=== PATIENT | female | born 1965 | race Caucasian/White ===

== ENCOUNTER 2021-07-20 19:03 | Inpatient (IN) | payer MEDICARE, OTHER ==
[~2021-07-20] VITALS: Ht 170.2 cm; Wt 61.7 kg
[2021-07-20 22:40] LABS: HEMOGLOBIN 10.4 gm/dl (12.3-15.3); RED BLOOD COUNT 3.58 M/UL (4.00-5.10); WHITE BLOOD COUNT 3.6 K/UL (4.5-11.0)
[2021-07-20 23:32] LABS: BUN/CREATININE RATIO 37 (0-10)
--- NOTE | 2021-07-21 | NUR ---
PATIENT WAS TRANSPORTED TO CT SCAN FOR HEAD CT WITHOUT COMPLICATION. RESULT WAS CALLED BY READING RADIOLOGIST AND RELAYED TO DR STEELE.
--- NOTE | 2021-07-21 01:12 | NUR ---
PER REQUEST FROM DR STEELE. CAREGIVER WAS NOTIFIED. UPDATE GIVEN AND HEAD CT RESULTS EXPLAINED. ALL QUESTIONS AND CONCERNS ADDRESSED. PATIENT REMAINS FULL CODE.
[2021-07-21 03:23] LABS: HEMOGLOBIN 10.6 gm/dl (12.3-15.3); RED BLOOD COUNT 3.69 M/UL (4.00-5.10)
[2021-07-21 03:45] LABS: BUN/CREATININE RATIO 33 (0-10)
[2021-07-21 03:53] LABS: WHITE BLOOD COUNT 10.4 K/UL (4.5-11.0)
[2021-07-21] MEDS ORDERED: THORAZINE 25 MG25 MG PO (11:55)
[2021-07-21] MEDS ORDERED: SERTRALINE HCL100 MG PO (11:56)
[2021-07-21] MEDS ORDERED: CRESTOR20 MG PO (11:57)
[2021-07-21] MEDS ORDERED: OXCARBAZEPINE150 MG PO (11:58)
[2021-07-21] MEDS ORDERED: OMEPRAZOLE20 MG PO (11:58)
[2021-07-21] MEDS ORDERED: LACTULOSE10 GM/151 PO (12:14)
[2021-07-21] MEDS ORDERED: CLONAZEPAM1 MG PO (12:17)
[2021-07-21] MEDS ORDERED: CLONAZEPAM2 MG PO (12:17)
[2021-07-21] MEDS ORDERED: CHLORPROMAZINE200 MG PO (12:18)
[2021-07-21] MEDS ORDERED: CARAFATE 1 GM TA1 GM PO (12:18)
[2021-07-21] MEDS ORDERED: DOCUSATE SODIU100 MG PO (13:04)
[2021-07-21] MEDS ORDERED: LORATADINE10 MG PO (13:04)
[2021-07-21] MEDS ORDERED: MELATONIN10 MG PO (13:05)
[2021-07-21] MEDS ORDERED: MULTIVITAMIN1 EACH PO (13:06)
[2021-07-21] MEDS ORDERED: FERROUS SULFAT325 MG PO (13:06)
[2021-07-21] MEDS ORDERED: VITAMIN D21250 MCG PO (13:07)
[2021-07-21 14:36] LABS: BUN/CREATININE RATIO 26 (0-10)
[2021-07-21 18:50] LABS: BUN/CREATININE RATIO 20 (0-10)
[2021-07-21 22:46] LABS: BUN/CREATININE RATIO 16 (0-10)
[2021-07-22 02:12] LABS: WHITE BLOOD COUNT 9.9 K/UL (4.5-11.0)
[2021-07-22 02:13] LABS: HEMOGLOBIN 13.5 gm/dl (12.3-15.3); RED BLOOD COUNT 4.72 M/UL (4.00-5.10)
[2021-07-22 02:32] LABS: BUN/CREATININE RATIO 15 (0-10)
[2021-07-22 07:08] LABS: BUN/CREATININE RATIO 13 (0-10)
[2021-07-22 10:31] LABS: BUN/CREATININE RATIO 13 (0-10)
[2021-07-22 14:35] LABS: BUN/CREATININE RATIO 16 (0-10)
[2021-07-22 18:32] LABS: BUN/CREATININE RATIO 16 (0-10)
[2021-07-23 05:03] LABS: BUN/CREATININE RATIO 13 (0-10)
[2021-07-23 05:12] LABS: HEMOGLOBIN 16.7 gm/dl (12.3-15.3); RED BLOOD COUNT 5.95 M/UL (4.00-5.10); WHITE BLOOD COUNT 26.1 K/UL (4.5-11.0)
== END 2021-07-23 18:04 | disposition expired | DRG 208 ==
LOC: CCU 19:03
PROVIDERS: Internal Medicine; ADMIT Internal Medicine
PROC: 3E043XZ Introduction of Vasopressor into Central Vein, Percutaneous Approach (ICD-10-PCS; principal; 2021-07-20)
PROC: 5A1945Z Respiratory Ventilation, 24-96 Consecutive Hours (ICD-10-PCS; 2021-07-20)
PROC: 4A00X4Z Measurement of Central Nervous Electrical Activity, External Approach (ICD-10-PCS; 2021-07-23)
DX: J96.01 Acute respiratory failure with hypoxia (principal); J69.0 Pneumonitis due to inhalation of food and vomit; G93.6 Cerebral edema; Z20.822 Contact with and (suspected) exposure to COVID-19; I46.9 Cardiac arrest, cause unspecified; Z51.5 Encounter for palliative care; E22.2 Syndrome of inappropriate secretion of antidiuretic hormone; G93.1 Anoxic brain damage, not elsewhere classified; R57.9 Shock, unspecified; E87.0 Hyperosmolality and hypernatremia; F79 Unspecified intellectual disabilities; E86.1 Hypovolemia; R62.50 Unspecified lack of expected normal physiological development in childhood; R53.81 Other malaise; F32.A Depression, unspecified; E78.5 Hyperlipidemia, unspecified; R40.2432 Glasgow coma scale score 3-8, at arrival to emergency department; K21.9 Gastro-esophageal reflux disease without esophagitis; G40.909 Epilepsy, unspecified, not intractable, without status epilepticus; I10 Essential (primary) hypertension; R32 Unspecified urinary incontinence; E11.9 Type 2 diabetes mellitus without complications; F20.9 Schizophrenia, unspecified; Z79.4 Long term (current) use of insulin; Z90.49 Acquired absence of other specified parts of digestive tract; Z93.1 Gastrostomy status
CPT/HCPCS: 36415; 36600; 70450; 71045; 80048; 80053; 81001; 82550; 82553; 82803; 82962; 83605; 83735; 83930; 83935; 84100; 84132; 84295; 84300; 84484; 85025; 85027; 87040; 87086; 93005; 94002; 94003; 94760; 95824; C9113; J1650; J1953; J2543; J2597; J3480; J7070; U0002